=== PATIENT | female | born 1970 | race Caucasian/White ===

== ENCOUNTER → 2017-01-22 | Outpatient (CLI) | payer OTHER | END | disposition home or self-care (01) | LOC: US 12:16 | DX: N93.8 Other specified abnormal uterine and vaginal bleeding (principal) ==

== ENCOUNTER → 2017-02-17 | Outpatient (CLI) | payer OTHER ==
[~2017-02-17] MED LIST: LEVOTHYROXINE125 MCG PO; OMEPRAZOLE D/R20 MG PO
[2017-02-17 10:40] LABS: BASO # 0.1 10*3/uL (0.0-0.1); BASO % 0.9 % (0.0-1.0); EOS # 0.2 10*3/uL (0.0-0.4); EOS % 2.1 % (1.0-4.0); HEMATOCRIT 31.8 % (37.0-47.0); HEMOGLOBIN 9.3 g/dl (12.0-16.0); LYMPH # 1.6 10*3/uL (1.3-4.4); LYMPH % 19.5 % (27.0-41.0); MEAN CELL VOLUME 76.3 fl (81.0-99.0); MEAN CORPUSCULAR HGB 22.3 pg (27.0-31.0); MEAN CORPUSCULAR HGB CONC 29.2 g/dl (33.0-37.0); MEAN PLATELET VOLUME 9.8 fl (9.6-12.3); MONO # 0.8 10*3/uL (0.1-1.0); MONO % 9.6 % (3.0-9.0); NEUT # 5.4 10*3/uL (2.3-7.9); NEUT % 67.6 % (47.0-73.0); PLATELET COUNT AUTOMATED 287 10*3/uL (130-400); RED BLOOD COUNT 4.17 10*6/uL (4.10-5.10); RED CELL DISTRI WIDTH 17.1 % (0-14.5)
== END | disposition home or self-care (01) ==
LOC: LAB 09:38
PROVIDERS: Obstetrics & Gynecology
DX: D50.0 Iron deficiency anemia secondary to blood loss (chronic) (principal); N94.6 Dysmenorrhea, unspecified; N92.0 Excessive and frequent menstruation with regular cycle; N92.1 Excessive and frequent menstruation with irregular cycle

== ENCOUNTER → 2017-02-23 | Day surgery (SDC) | payer OTHER ==
[2017-02-17 09:49] VITALS: BP 124/74
[~2017-02-23] VITALS: Ht 160 cm; Wt 95.3 kg
--- NOTE | ~2017-02-23 | WRIGHTHP ---
[place], [place] PATIENT HISTORY AND PHYSICAL EXAM NAME: HAWA ALANIS [facility] #: [id number] UNIT #: [id number] ROOM: DOCTOR: KAMI FOY MD BIRTHDATE: [birth year] DOS: DATE OF SURGERY: 02/23/2017 HISTORY OF PRESENT ILLNESS: This patient is a 46-year-old white female who is a 2, para 2, AB 0, whose is status post vasectomy, whose last menstrual period was 02/15/2017, who was seen on 02/11/2017, stating that she was having significant duration of menses from 8-9 days to 1+ month with premenstrual cramping. She also has a history of significant anemia requiring significant iron therapy. We had discussed progesterone therapy, Mirena and NovaSure. The patient desires NovaSure ablation in that her is status post vasectomy. We at that time reviewed the risks and benefits, indications, potential complications, and alternatives of NovaSure, hysteroscopy and D and C, understanding stated, and she signed consent. PAST MEDICAL HISTORY: Two pregnancies, 1 vaginal delivery, 1 . She is status post thyroidectomy and is on Synthroid 125 mcg daily. She has some history of GERD and is taking omeprazole 20 mg daily. SOCIAL HISTORY: She smokes about a half pack per day and drinks very little. ALLERGIES: She has no known allergies. REVIEW OF SYSTEMS: Stable. FAMILY HISTORY: Reveals father with hypertension and mother with hypertension. PHYSICAL EXAMINATION: GENERAL: A pleasant white female in no significant distress. VITAL SIGNS: She is 5 feet 3 inches, 221 pounds, BMI is 39, oxygen sat is 100%. She has no history of any type of sleep apnea. Her blood pressure is 126/80. HEENT: All within normal limits. NECK: All within normal limits. LUNGS: All within normal limits. CARDIAC: All within normal limits. BREASTS: All within normal limits. ABDOMEN: All within normal limits. EXTREMITIES: All within normal limits. NEUROLOGIC: All within normal limits. GENITOURINARY: External genitalia, vagina, and cervix were normal. Most recent Pap in July 2016 was negative. The uterus is anteverted and anteflexed, overall normal in size and configuration, nontender, mobile. Adnexa negative. RECTAL: Negative. Stool heme test negative. ASSESSMENT: The patient with regular cycles, but significant worsening menorrhagia, dysmenorrhea, sometimes very prolonged menses, significant iron deficiency anemia due to this chronic blood loss. PLAN: The patient will undergo hysteroscopy, D and C and NovaSure endometrial ablation on 02/23/2017. [place], [place] PATIENT HISTORY AND PHYSICAL EXAM NAME: HAWA ALANIS UNIT #: [id number] ROOM: DOCTOR: KAMI FOY MD BIRTHDATE: [birth year] KAMI FOY MD CM:HISPHYS:PATIENT HISTORY AND PHYSICAL EXAMINATION [id number] KAMI FOY MD 02/19/17 0441 interface
--- NOTE | ~2017-02-23 | O ---
[place], [place] OPERATIVE NOTE NAME: HAWA ALANIS UNIT #: [id number] ROOM: DOCTOR: KAMI SHAH MD BIRTHDATE: [birth year] DOS: 02/23/2017 PREOPERATIVE DIAGNOSES: Worsening hypermenorrhea, dysmenorrhea and history of significant anemia. POSTOPERATIVE DIAGNOSES: Worsening hypermenorrhea, dysmenorrhea and history of significant anemia, with the uterus being retroverted and retroflexed. PROCEDURE: Hysteroscopy, D and C and NovaSure endometrial ablation. SURGEON: Kami Shah MD. ANESTHESIA: MAC with paracervical block, 2% Nesacaine, 5 mL each at 4 and 7 o'clock respectively. ESTIMATED BLOOD LOSS: Minimal. REPLACEMENTS: IV fluids and Toradol. COMPLICATIONS: There were no complications. CONDITION: The patient's condition to recovery stable. OPERATIVE SUMMARY: The patient was taken to the operating room in supine position, MAC anesthesia, lithotomy position, prepped and draped in routine manner. Cervix was grasped, pericervical block of 2% Nesacaine was placed at 4 and 7 o'clock of 5 mL each. The uterus was sounded and noted to be retroverted and retroflexed and it was sounded to almost 8.5 to 9 cm. The cervix was progressively dilated. Hysteroscopic exam of the intrauterine cavity including the cornua, the body of the uterus, the fundus, the lower uterine segment all grossly within normal limits. A thorough curettage was then accomplished and this was then followed by placing the NovaSure device and after adjusting for the appropriate depth and width, we proceeded with the NovaSure endometrial ablation. The device was then removed and repeat hysteroscopy revealed an excellent global endometrial ablation. We then removed the hysteroscopic instrumentation and removed the tenaculum. Noting good hemostasis, the patient was cleaned off, taken out of lithotomy position, awakened and transferred to recovery in satisfactory condition with stable vital signs, good hemostasis, stable sponge and instrument count and was noted to have had a good urine output on the straight catheterization. [place], [place] OPERATIVE NOTE NAME: HAWA ALANIS UNIT #: [id number] ROOM: DOCTOR: KAMI SHAH MD BIRTHDATE: [birth year] KAMI SHAH MD CM:OPRECORD:OPERATIVE NOTE [id number] KAMI SHAH MD 02/23/17 1531 interface
[2017-02-23 11:15] VITALS: BP 132/73
[2017-02-23 13:19] VITALS: BP 120/74
[2017-02-23 13:35] VITALS: BP 114/72
[2017-02-23 13:48] VITALS: BP 123/73
[2017-02-23 14:05] VITALS: BP 131/83
[2017-02-23 14:19] VITALS: BP 134/74
== END | disposition home or self-care (01) ==
LOC: SDC 02-17 09:30
DX: N92.0 Excessive and frequent menstruation with regular cycle (principal); D64.9 Anemia, unspecified; F17.210 Nicotine dependence, cigarettes, uncomplicated; K21.9 Gastro-esophageal reflux disease without esophagitis; Z82.49 Family history of ischemic heart disease and other diseases of the circulatory system; E07.9 Disorder of thyroid, unspecified; Z98.890 Other specified postprocedural states

== ENCOUNTER → 2019-08-02 | Outpatient (CLI) | payer OTHER ==
[2019-08-02 08:43] LABS: FREE T4 1.36 ng/dl (0.76-1.46); THYROID STIM HORMONE (HS) 0.829 uIU/ml (0.358-4.75); THYROXINE (T4) TOTAL 11.7 ug/dl (4.8-13.9)
[2019-08-03 06:08] LABS: THYROID PEROXIDASE (TPO) AB <6 IU/mL (0-34); TOTAL T3 (TT3) 108 ng/dL (71-180)
[2019-08-03 14:06] LABS: THYROGLOBULIN ANTIBODY <1.0 IU/mL (0.0-0.9)
== END | disposition home or self-care (01) ==
LOC: LAB 07:02
PROVIDERS: Internal Medicine Endocrinology, Diabetes & Metabolism
DX: E03.9 Hypothyroidism, unspecified (principal)

== ENCOUNTER → 2021-07-31 | Outpatient (CLI) | payer OTHER | END | disposition home or self-care (01) | LOC: LAB 07:44 | PROVIDERS: ATTEND Internal Medicine Endocrinology, Diabetes & Metabolism | DX: E03.9 Hypothyroidism, unspecified (principal) ==